=== PATIENT | female | born 1995 | race Hispanic/Latino ===

== ENCOUNTER 2016-11-17 07:18 | Inpatient (IN) | payer OTHER ==
[~2016-11-17] VITALS: Ht 162.6 cm; Wt 63.0 kg
[~2016-11-17 07:18] MED LIST: BUTA1CAP16 PO; PREN1TAB87 PO
[2016-11-17] MEDS ORDERED: Lactated Ringer's 1,000 ML IV PRN (08:32)
[2016-11-17] MEDS ORDERED: Hemorrhage Kit, Post Partum XX ONE ×2 (08:35→16:00)
[2016-11-17] MEDS ORDERED: Ondansetron 2 mg/mL 2 mL Inj IVPUSH PRN ×2 (08:35→15:05)
[2016-11-17] MEDS ORDERED: Oxytocin 10 Unit/mL Inj IM PRN ×2 (08:35→16:00)
[2016-11-17] MEDS ORDERED: Methylergonovine 0.2 mg/mL Inj IM PRN ×2 (08:35→16:00)
[2016-11-17] MEDS ORDERED: fentaNYL-PF 50 mCg/mL 2 mL Inj IVPUSH PRN (08:35)
[2016-11-17] MEDS ORDERED: Oxytocin 30 Units/500 mL LR 30 UNITS in IV Premix 1 EACH IV PRN ×3 (08:35→16:00)
[2016-11-17] MEDS ORDERED: Carboprost 250 mCg/mL Inj IM PRN ×2 (08:35→16:00)
[2016-11-17] MEDS ORDERED: Sodium Chloride LOK Flush 10 mL Syringe IVFLUSH PRN (08:35)
[2016-11-17 08:43] LABS: Mean Corpuscular Hemoglobin 27.8 pg (27.0-35.0); Mean Corpuscular Volume 87.5 fL (81-100)
[2016-11-17] MEDS ORDERED: Lactated Ringer's 1,000 ML IV SCH ×3 (12:18→15:59)
[2016-11-17] MEDS ORDERED: fentaNYL 2 mCg/mL-Bupivicaine 0.125% 100 mL Premix EPIDURAL ONE (15:01)
[2016-11-17] MEDS ORDERED: Lactated Ringer's 500 ML IV ONE (15:04)
[2016-11-17] MEDS ORDERED: fentaNYL 2 mCg/mL-Bupiv 0.125% 100 ML EPIDURAL SCH (15:05)
[2016-11-17] MEDS ORDERED: EPHEDrine Sulfate 50 mg/mL Inj IVPUSH PRN (15:05)
[2016-11-17] MEDS ORDERED: Phenylephrine/NS-PF 100 mCg/mL 5 mL Syringe IVPUSH PRN (15:05)
[2016-11-17] MEDS ORDERED: Atropine 1 mg/10 mL (Code) Syringe IVPUSH PRN (15:05)
--- NOTE | 2016-11-17 15:05 | PCM.HPANE ---
Patient Data Surgeon Admitting Provider:Joseph Myers MD Attending Provider:Joseph Myers MD Primary Care Physician:Laurence Castillo MD Other Provider:Arlet Rome MD Reason for Visit Early Labor EARLY LABOR Ht/WT & BMI Body Mass Index Allergies Coded Allergies: No Known Allergies (Verified Allergy, Unknown, 07/02/16) Diabetes History Hx Diabetes?: No Medications Hypertension Medication: No Home Meds Incl Beta Irish: No Active Scripts Butalbital/Aspirin/Caff 50-325-40 mg (Fiorinal 50-325-40 mg)1 Each Capsule1 Capsule PO Q4H PRN Headache #60 CAPSULE Ref 0 Prov:Joseph Myers MD 10/15/16 Reported Medications Vit W-Ca,Fe,FA(<1 mg) ( Vitamins)1 Each Tablet1 Each PO DAILY 07/02/16 History Hx of Heart Problems?: No Cardiovascular History: Denies:: Congestive Heart Failure Hypertension Hx of Respiratory Problem?: No Respiratory History: Denies:: Tuberculosis Hx Neurologic Problems?: No Hx of GI Problems?: Yes Gastrointestinal History: Positive for:: Heartburn Female Hx: Positive for:: Currently Hx Surgeries?: No Hx Diabetes: No Hx Alcohol Use: NoHx Substance Use: No Smoking Status: Never Smoker Stop/Bang Treated for Sleep Apnea?: No Do You Have a CPAP Machine?: No KRISTI Risk Assessment: Low Risk, <3 Yes Risk Assessment Category Category 1A: Patient has history of documented sleep apnea, and HAS NOT received any narcotic, sedative or anesthesia administration during this stay. Category 1B: Patient has history of documented sleep apnea, and HAS received any narcotic , sedative or anesthesia administration during this stay Category 2: Patient has SUSPECTED Obstructive Sleep Apnea, and HAS received any narcotic , sedative or anesthesia administration during this stay. Category 3: Patient has SUSPECTED Obstructive Sleep Apnea and HAS NOT received narcotic, sedative or anesthesia administration during this stay. Category 4: Outpatient in Procedural Areas with known sleep apnea or who screen positive for High Risk via the STOP/BANG questionnaire. Exam Exam General Appearance: Oriented X3 HEENT/AIRWAY: MP 2 Lungs: Normal Air Movement Heart: Regular Rate/Rhythm Meds/Labs/Diagnostics Admission Meds Current Medications Lactated Ringer's (Lr) 1,000 ml @ 125 mls/hr Q8H IV Last administered on t 12:32; Start 11/17/16 at 12:18 Labs Test 11/17/16 07:50 White Blood Count 10.8th/mm3 (3.8-10.1) Red Blood Count 4.07mil/mm3 (3.90-5.20) Hemoglobin 11.3g/dL (12.0-15.6) Hematocrit 35.6% (35.0-46.0) Mean Corpuscular Volume 87.5fL (81-100) Mean Corpuscular Hemoglobin 27.8pg (27.0-35.0) Mean Corpuscular Hemoglobin Concent 31.7% (32.0-37.0) Red Cell Distribution Width 13.6% (12.3-15.4) Platelet Count 202bil/L (150-400) Plan Impression Patient chart reviewed, patient interviewed and anesthestic plan with risks, benefits, and alternatives discussed, and informed consent obtained. ASA Physical Status: ASA2 Mod Systemic Disease Anesthetic Plan: Epidural Bene/Risks/Altern/Consents: Yes HP Complete Prior to Induction: Yes Keshav Jacobs MD Nov 17, 2016 15:05
[2016-11-17] MEDS ORDERED: Witch Hazel-Glycerin Pads TOPICAL PRN (16:00)
[2016-11-17] MEDS ORDERED: LANOlin HPA 7 Gm Ointment TOPICAL PRN (16:00)
[2016-11-17] MEDS ORDERED: Benzocaine (Dermoplast) 20% 60 Gm Spray TOPICAL PRN (16:00)
[2016-11-17] MEDS ORDERED: Sodium Chloride LOK Flush 10 mL Syringe IVFLUSH SCH (16:30)
--- NOTE | 2016-11-17 16:37 | HP ---
[address] [address] HISTORY AND PHYSICAL PATIENT: ROMEO GUERRERO : 1995 MR#: [id number] ADMIT: 11/17/2016 JOB ID: [id number] ADMISSION DIAGNOSIS: Spontaneous rupture of membranes at term. HISTORY OF PRESENT ILLNESS: The patient is a 21-year-old, 2, para 1-0-0-1, at 38 weeks and 6 days gestational age by first trimester ultrasound. Has her complicated with the followin. Chronic headaches that was improving with Fioricet. 2. Initial estimated weight showing 7th percentile with suspected IUGR. Followup on September 27 showed estimated weight at 25th percentile. 3. Spontaneous rupture of membranes at 5 a.m. this morning with positive ROM Plus test in triage. 4. History of a prior preeclampsia with 2014 with induction of labor at term. Normal blood pressures during this entire per patient. PAST OBSTETRICAL HISTORY: 2014, 39 weeks induction of labor for preeclampsia, spontaneous vaginal delivery. No complications and the current . PAST GYNECOLOGIC HISTORY: Denied any history of abnormal Pap smears. Denied any history of STDs. PAST MEDICAL HISTORY: Chronic headache. PAST SURGICAL HISTORY: Upper lid plastic surgery as a child. MEDICATIONS: 1. vitamins. 2. Fioricet. ALLERGIES: No known drug allergies. SOCIAL HISTORY: Denied any alcohol consumption. Denied any drugs of abuse. Denied any cigarette smoking. LABS: A-positive, antibody negative, rubella immune, varicella immune, serology nonreactive, hepatitis B surface antigen negative. HIV nonreactive. GC/Chlamydia cultures negative. GBS cultures negative. PHYSICAL EXAMINATION: Patient is alert, oriented x3. Vital signs are 118/65 for blood pressure. Respirations are 16. Pulse is 84. Temperature 36.5 degrees centigrade. Heart: Regular rate and rhythm. Positive S1, S2. Lungs clear to auscultation bilaterally. Abdomen: Gravid uterus, nontender. Positive bowel sounds. Lower extremities: No calf tenderness appreciated bilaterally. Cervical exam is 3 cm dilated, cervix 80% effaced, -2 station, vertex presentation. Bedside ultrasound confirmed vertex presentation. heart tracing is showing baseline of 130 beats per minute, positive accelerations, no decelerations, moderate variability, and reactive tracing. ASSESSMENT/PLAN: Patient is a 21-year-old, 2, para 1-0-0-1, at 38 weeks and 6 days gestational age by first trimester ultrasound, admitted for spontaneous rupture of membranes and active labor. Progressed from 1 cm in Triage to 3 cm, 80% effaced, within 2 hours of admission. 1. Expectant management. 2. GBS cultures negative. 3. Discussed intrapartum analgesia. Patient is considering epidural. 4. Category 1 heart tracing. Continue with external monitoring. All the above discussed in details with the patient, who agreed to the plan. CARLOS
[2016-11-17] MEDS ORDERED: Ascorbic Acid 500 mg Tablet PO SCH (17:30)
--- NOTE | 2016-11-17 21:28 | OP ---
[address] [address] OPERATIVE REPORT PATIENT: ROMEO GUERRERO : 1995 MR#: [id number] ADMIT: 11/17/2016 JOB ID: [id number] DATE OF SURGERY: PREOPERATIVE DIAGNOSIS(ES): A 21-year-old, 2, para 1-0-0-1, at 38 weeks 6 days gestational age by first trimester ultrasound who is admitted for spontaneous rupture of membranes. Labor augmented with Pitocin. Patient progressed to fully dilated, +3 station. POSTOPERATIVE DIAGNOSIS(ES): A 21-year-old, 2, para 1-0-0-1, at 38 weeks 6 days gestational age by first trimester ultrasound who is admitted for spontaneous rupture of membranes. Labor augmented with Pitocin. Patient progressed to fully dilated, +3 station. PROCEDURE: Spontaneous vaginal delivery. SURGEON: Arlet Rome MD. ANESTHESIA: IV fentanyl. ESTIMATED BLOOD LOSS: 200 cc. COMPLICATIONS: None. FINDINGS: Single viable male infant with Apgars 8/9. Weight still pending. PROCEDURE: Patient started to push efficiently. head delivered in left occiput anterior position. Nuchal cord x1 was noted. Was reduced over baby's head ;the anterior shoulder delivered as well as posterior shoulder and the rest of the body followed. Delayed cord clamping allowed for 60 seconds. Infant placed over mom's chest. Cord clamped and cut. Placenta followed spontaneously. Upon inspection, it was noted to be intact with central cord insertion of a three-vessel cord. Inspection of the perineum revealed no perineal lacerations. Firm uterine fundus confirmed. Sponge and instrument counts were correct x2. Mom and baby recovering in a stable condition in labor and delivery room. Dr. Rome was present and scrubbed for the entire procedure. CARLOS
[2016-11-17] MEDS: oxyCODONE-Acetamin 5-325 mg Tablet PO PRN (22:36)
[2016-11-18] MEDS: oxyCODONE-Acetamin 5-325 mg Tablet PO PRN (03:35)
[2016-11-18 06:39] LABS: Mean Corpuscular Hemoglobin 27.7 pg (27.0-35.0); Mean Corpuscular Volume 89.1 fL (81-100)
[2016-11-18] MEDS ORDERED: ASCO-294 PO (07:37)
[2016-11-18] MEDS ORDERED: IBUP800T28 PO (07:37)
[2016-11-18] MEDS ORDERED: DOCU-41 PO (07:37)
[2016-11-18] MEDS ORDERED: FERR-83 PO (07:37)
--- NOTE | 2016-11-18 07:40 | PCM.DIOB ---
Obstetrical Disch Instruction Dates of Hospitalization Date of Hospital Admission Nov 17, 2016 at 07:33 Providers Admitting Physician: Joseph Myers MD Primary Care Physician: Laurence Castillo MD Attending Physician: Joseph Myers MD Diet Discharge Diet: No restrictions Activity Discharge Activity-General: Pelvic Rest for 6 weeks, Balance rest and activity Dressing and Incisional Care Hygiene: May shower, Perineal care Additional Instructions Discharge Instructions Continue your vitamin. Please take the iron and vitamin c together for your anemia. Iron can give you constipation so you have also been given a prescription for docusate to keep you regular. Be sure to follow up in 6 weeks at [facility]. Pelvic rest for 6 weeks (nothing per vagina including intercourse, tampons) If you have a fever greater than 100.4, please call [facility]. There is always someone international manager to talk to. If you have an increase in bleeding, call [facility]. If you have a lot of bleeding suddenly, especially if you have symptoms of dizziness & weakness with it, get emergency help. If you start experiencing extreme depression, especially if you feel that you are a danger to yourself or your family, seek emergency help. You have been through a lot -- BE SURE TO TAKE CARE OF YOURSELF. You have been sent home with the following prescriptions: - Colace 100 mg twice a day as needed for constipation. - Ferrous sulfate 325 mg every day. - Vitamin C 500 mg every day. Take with iron. - Ibuprofen 800mg take 1 tab every 8 hours as needed for pain. Take with a meal. Follow-up in 6 weeks with [facility]. Follow Up Plan Follow-up Provider (F9): [facility] Follow-up appointment: Weeks (6) Call your provider for: Fever or Chills, Shortness of breath, Heavy vaginal bleeding, Excessive constipation, Vaginal discomfort, Red painful breasts, Other (swelling in one leg or painful, swelling in your legs) Kylah Mclain DO Nov 18, 2016 07:40
[2016-11-18 09:39] VITALS: BP 94/51; PULSE 73; RESP 16
[2016-11-18] MEDS ORDERED: Carboprost 250 mCg/mL Inj IM ONE (16:59)
[2016-11-18] MEDS ORDERED: Oxytocin 10 Unit/mL Inj ONE (16:59)
--- NOTE | 2016-11-18 17:00 | PCM.DC.OB ---
Obstetrical Discharge Summary Date of Service Nov 18, 2016 Date of hospital admission Nov 17, 2016 at 07:33 Date of Discharge: Nov 18, 2016 Providers Admitting Physician: Kamini Huffman MD Primary Care Physician: Laurence Castillo MD Attending Physician: Kamini Huffman MD Diagnosis at Time of Discharge 1. 21-year-old, 2, para 1-0-0-1 now 2, at 38 weeks and 6 days gestational age by first trimester ultrasound, admitted for spontaneous rupture of membranes and active labor. Problems: Invasive procedures Vaginal delivery Date of Procedure: Nov 17, 2016 Brief History and Physical: From the history and physical performed on 11/17/16: The patient is a 21-year-old, 2, para 1-0-0-1, at 38 weeks and 6 days gestational age by first trimester ultrasound. Has her complicated with the followin. Chronic headaches that was improving with Fioricet. 2. Initial estimated weight showing 7th percentile with suspected IUGR. Followup with September 27 showed estimated weight at 25th percentile. Resolved IUGR. 3. Spontaneous rupture of membranes at 5 a.m. this morning with positive ROM Plus test in triage. 4. History of a prior preeclampsia with 2015 with induction of labor at term. Normal blood pressures during this entire per patient. Hospital Course: 1. 21-year-old, 2, para 1-0-0-1 now 2, at 38 weeks and 6 days gestational age by first trimester ultrasound, admitted for spontaneous rupture of membranes and active labor, which was augmented with Pitocin. She is status post normal spontaneous vaginal delivery. She was discharged on post- day 1. - She delivered a single viable male infant with Apgars 8/9 on 11/17/2016. She is . - She did not have any perineal lacerations - On day of discharge, she had a good appetite and normal amount of lochia. She did not have leg pain or swelling. On exam, her uterus was firm and bilateral legs did not have increased edema or tenderness. Her lungs were clear to auscultation bilaterally and her heart exam was unremarkable. Ascorbate Calcium (Vitamin C) 500 Mg Tablet 500 MG PO DAILY Prescribed by: DO Delfin SMITHalbitfabien/Aspirin/Caff 50-325-40 mg (Fiorinal 50-325-40 mg) 1 Each Capsule 1 CAPSULE PO Q4H PRN PRN Headache Prescribed by: KAMINI HUFFMAN MD Docusate Sodium (Colace) 100 Mg Capsule 100 MG PO BID PRN PRN For Constipation Prescribed by: SOM GASTON DO Ferrous Sulfate (Ferrous Sulfate) 325 Mg Tablet 325 MG PO DAILY Prescribed by: SOM GASTON DO Ibuprofen (Ibuprofen) 800 Mg Tablet 800 MG PO TID PRN PRN For Pain Prescribed by: SOM GASTON DO Vit W-Ca,Fe,FA(<1 mg) ( Vitamins) 1 Each Tablet 1 EACH PO DAILY (Reported) Patient instructions Continue your vitamin. Please take the iron and vitamin c together for your anemia. Iron can give you constipation so you have also been given a prescription for docusate to keep you regular. Be sure to follow up in 6 weeks at [facility]. Pelvic rest for 6 weeks (nothing per vagina including intercourse, tampons) If you have a fever greater than 100.4, please call [facility]. There is always someone nurse practitioner physician assistant to talk to. If you have an increase in bleeding, call [facility]. If you have a lot of bleeding suddenly, especially if you have symptoms of dizziness & weakness with it, get emergency help. If you start experiencing extreme depression, especially if you feel that you are a danger to yourself or your family, seek emergency help. You have been through a lot -- BE SURE TO TAKE CARE OF YOURSELF. You have been sent home with the following prescriptions: - Colace 100 mg twice a day as needed for constipation. - Ferrous sulfate 325 mg every day. - Vitamin C 500 mg every day. Take with iron. - Ibuprofen 800mg take 1 tab every 8 hours as needed for pain. Take with a meal. Follow-up in 6 weeks with [facility]. copies to: Arlet Rome MD; Kamini Huffman MD, Marissa L DO Nov 18, 2016 08:36
== END 2016-11-18 17:00 | disposition home or self-care (01) | DRG 775 ==
LOC: FBCO 07:18 → FBC 07:33
PROVIDERS: ADMIT Legal Medicine; ATTEND Obstetrics & Gynecology
PROC: 10H073Z Insertion of Monitoring Electrode into Products of Conception, Via Natural or Artificial Opening (ICD-10-PCS; principal; 2016-11-17)
PROC: 10E0XZZ Delivery of Products of Conception, External Approach (ICD-10-PCS; 2016-11-17)
DX: O69.81X0 Labor and delivery complicated by cord around neck, without compression, not applicable or unspecified (principal); G43.909 Migraine, unspecified, not intractable, without status migrainosus; O75.89 Other specified complications of labor and delivery; Z3A.38 38 weeks gestation of pregnancy; Z37.0 Single live birth

== ENCOUNTER 2017-02-09 18:17 | Emergency (ER) | payer OTHER ==
[~2017-02-09] VITALS: Ht 162.6 cm; Wt 59.1 kg
[~2017-02-09 18:17] MED LIST changes: +ASCO-294 PO; +DOCU-41 PO; +FERR-83 PO; +IBUP800T28 PO
[2017-02-09 18:22] VITALS: BP 128/73; PULSE 81; RESP 16; O2SAT 100
--- NOTE | 2017-02-09 18:35 | ED.REPORT ---
HPI-Extremity Problem Upper Date of Service Feb 09, 2017 ED Provider: Oswald Anders DO The patient is a 21 year old female who presents to the ED due to a laceration on her left pinky finger. 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 She doesn't remember when her last tetanus shot was. Nursing Notes Stated Complaint: LEFT HAND FINGER LACERATION Chief Complaint: Laceration Nursing Notes Reviewed: Yes Allergies: Coded Allergies: No Known Allergies (Verified Allergy, Unknown, 02/09/17) Scheduled Ascorbate Calcium (Vitamin C) 500 Mg Tablet 500 MG PO DAILY Ferrous Sulfate (Ferrous Sulfate) 325 Mg Tablet 325 MG PO DAILY Vit W-Ca,Fe,FA(<1 mg) ( Vitamins) 1 Each Tablet 1 EACH PO DAILY Scheduled PRN Butalbital/Aspirin/Caff 50-325-40 mg (Fiorinal 50-325-40 mg) 1 Each Capsule 1 CAPSULE PO Q4H PRN PRN Headache Docusate Sodium (Colace) 100 Mg Capsule 100 MG PO BID PRN PRN For Constipation Ibuprofen (Ibuprofen) 800 Mg Tablet 800 MG PO TID PRN PRN For Pain General Time Seen by MD: 18:34 Chief Complaint Finger injury left 5 Hx Obtained From: Patient Arrived By: Walk-in Onset Occurred: Just prior to arrival Symptom Duration: Since onset Caused by: Accidental Location: : Finger left 5 Quality: Painful Severity: Current: Mild Recent Healthcare: No recent doctor visit, No recent hospitalization Similar Sx Previous: No Past Medical History Past Medical History Notes: Past Medical History None reported Past Surgical History None reported Family History Noncontributory Smoking History Never Smoker Social History Other Social History: Good social support, Lives with children, Local resident Ambulatory Status Independent Review of Systems Musculoskeletal: Denies: Extremity pain, Extremity swelling Neurologic: Denies: Change LOC, Dizziness, Headache, Lightheaded, Numbness, Syncope Complete sys rev & neg: except as marked. GI: Denies: Nausea, Vomiting Hematologic: Reports Bleeding (left pinky finger laceration) Physical Exam Initial Vital Signs Vital Signs (First) Date Time Temp Pulse Resp B/P Pulse Ox O2 Delivery O2 Flow Rate FiO2 02/09/17 18:22 36.4 81 16 128/73 100 Room Air Initial VS: Reviewed General/Constitutional: Awake, Alert, No acute distress, Cooperative, Not toxic appearing Upper Extremity / MS: Atraumatic, Inspection NL, Full range of motion, Neurologic intact, Vascular intact Wrist / Hand: Neurologic intact, Vascular intact Finger Exam : Finger Exam: Positive: Finger name... (L little), Tenderness present... ( Mild) Trauma / Burn / Environmental: Positive: Laceration 0.5 cm curved linear vulvar pad laceration Skin: Color NL, No rash Neurologic: Oriented X3, Speech NL, No motor deficits Head / Eyes: Atraumatic, Normocephalic, PERRL, EOMI Back: Atraumatic, Inspection NL, Full range of motion Lower Extremity / Pelvis / MS: Atraumatic, Inspection NL, Full range of motion , Neurologic intact, Vascular intact Procedures Laceration Management Time: 19:42 Procedure Performed by: ED physician Consent / Setup / Site Prep: Informed consent provided, Hand hygiene observed, Stand sterile technique Location of Wound: 0.5 cm curved linear vulvar pad laceration Digital Block: No Digit Involved: Little finger left Repair Skin: Dermabond Post-Procedure / Complications: Antibiotic oint applied, No complications, Condition improved, Tolerated procedure well, Patient stable Re-Eval/Medical Decision Re-Evaluation/Progress : Time of Eval: 19:41 Re-Evaluation/Progress Note: Wound washed and cleaned with soap. Laceration repaired with Dermabond. Pt tolerated procedure well. Counseled Regarding: Diagnosis, Lab results, Need for follow-up, When/why to return to ED Discharge & Departure Impression: Primary Impression: Finger laceration Encounter type: initial encounter Qualified Code: S61.219A - Laceration without foreign body of unspecified finger without damage to nail, initial encounter Disposition: Home Discharge Condition All VS Reviewed: Yes Condition: Stable Patient Instructions: Finger Laceration (ED) Additional Instructions: Thank you for entrusting us with your care today. Keep the wound clean and dry. Use Tylenol and Ibuprofen as needed for pain. The glue will wear off in about a week and the wound should be healed. Keep your finger in the splint to protect the wound. Have the wound re-checked in 48-72 hrs by your primary care physician or at the emergency department. Return to the Emergency Department if you experience any new or worsening symptoms including any signs of infection such as redness, swelling, or warmth. I hope you feel better soon! Referrals: Laurence Castillo MD (PCP) Scribe Attestation Portion of this note were transcribed by Yadi Sparrow. I, Dr. Anders, personally performed the history, physical exam, and medical decision-making: I reviewed and confirmed the accuracy for the information in the transcribed note. Signed by: karlos Enriquez, 02/09/17 2000 copies to: Laurence Castillo MD, Todd P DO Feb 09, 2017 18:35 Yadi Sparrow Feb 09, 2017 18:53
[2017-02-09] MEDS ORDERED: TdaP Vaccine 0.5 mL Inj IM ONE (18:50)
[2017-02-09] MEDS ORDERED: Tissue Adhesive Liq (CS Supplied) TOPICAL ONE (18:50)
[2017-02-09 19:59] VITALS: BP 112/68; PULSE 75; RESP 16; O2SAT 100
[2017-02-09 20:00] VITALS: BP 112/68; PULSE 75; RESP 16; O2SAT 100
== END 2017-02-09 20:00 | disposition home or self-care (01) ==
LOC: SED 18:17
DX: S61.217A Laceration without foreign body of left little finger without damage to nail, initial encounter (principal); W26.0XXA Contact with knife, initial encounter; Y92.9 Unspecified place or not applicable; Y93.G1 Activity, food preparation and clean up; Y99.8 Other external cause status; Z23 Encounter for immunization